=== PATIENT | male | born 1955 | race Caucasian/White ===

== ENCOUNTER → 2017-01-11 | Day surgery (SDC) | payer BC ==
[~2017-01-11] MED LIST: Lactated Ringers 1,000 ML IV SCH; Midazolam 1 MG/ML 2 ML SDV IV ONE; Propofol 200 MG/20 ML SDV IV ONE
--- NOTE | 2017-01-11 09:25 | PCM.OPNOTE ---
- General Post-Op/Procedure Note Date of Surgery/Procedure: 01/11/17 Operative Procedure(s): c scope with bx Findings: ascending colon polyp x3, hepatic flexure polyp Pre Op Diagnosis: colon screening Post-Op Diagnosis: ascending colon polyp x3, hepatic flexure polyp Anesthesia Technique: MAC Primary Surgeon: Rober Hernandez Anesthesia Provider: Eloisa Gracia Pathology: ascending colon polyp x3, hepatic flexure polyp Complications: None Condition: Good Free Text/Narrative:: see dictation
[2017-01-11 10:00] VITALS: BP 123/92
--- NOTE | 2017-01-11 10:04 | OR ---
DATE OF OPERATION: 01/11/2017 SURGEON: Rober Hernandez MD PROCEDURE PERFORMED: Colonoscopy with hot loop snare biopsy. PREOPERATIVE DIAGNOSIS: Need for screening colonoscopy. POSTOPERATIVE DIAGNOSES: Sessile polyps x3 of the proximal ascending colon and hepatic flexure polyp. INDICATIONS FOR PROCEDURE: This is a 61-year-old white male, who presents for his initial screening colonoscopy. He was offered and accepted same. DESCRIPTION OF OPERATION: After an excellent IV sedation was administered, the digital rectal exam was performed. No marked abnormality was noted. Flexible colonoscope was inserted and advanced to the cecum without difficulty. The following findings were noted. Ascending colon, just distal to the cecum there were 3 polyps, all 3 were flat, sessile on either side of the folds, they were biopsied with the hot loop snare and retrieved. Post biopsy, it appears that they were completely biopsied. These were sent for permanent. Transverse colon, with hepatic flexure, a small pedunculated polyp biopsied with the hot loop snare and sent for permanent. Descending colon, unremarkable. Sigmoid colon, unremarkable. Rectum and anus, unremarkable. Colon was deflated as the scope was removed. The patient tolerated the procedure well and was taken to recovery room in good condition. /[id number] /MARIEL
== END | disposition home or self-care (01) ==
LOC: FB.SDS 06:54
PROVIDERS: ATTEND Surgery
DX: Z12.11 Encounter for screening for malignant neoplasm of colon (principal); D12.2 Benign neoplasm of ascending colon; D12.3 Benign neoplasm of transverse colon; I10 Essential (primary) hypertension; E66.9 Obesity, unspecified; Z79.899 Other long term (current) drug therapy; Z87.891 Personal history of nicotine dependence
CPT/HCPCS: 45385; 88305; J2250; J2704; J7120

== ENCOUNTER 2017-05-03 08:19 | Day surgery (SDC) | payer BC ==
[2017-05-03] MEDS ORDERED: Lactated Ringers 1,000 ML IV SCH (08:45)
[2017-05-03] MEDS ORDERED: Lidocaine 2% 100 MG/5 ML Syringe IVPUSH ONE (09:30)
[2017-05-03] MEDS ORDERED: Propofol 200 MG/20 ML SDV IV ONE (09:30)
[2017-05-03] MEDS ORDERED: Midazolam 1 MG/ML 2 ML SDV IV ONE (09:30)
--- NOTE | 2017-05-03 10:10 | PCM.OPNOTE ---
- General Post-Op/Procedure Note Date of Surgery/Procedure: 05/03/17 Operative Procedure(s): cscope with bx Findings: ascending colon polyp descending colon polyp x3 Pre Op Diagnosis: hx of colon polyps with dysplasia Post-Op Diagnosis: ascending colon polyp. descending colon polyp x3 Anesthesia Technique: MAC Primary Surgeon: Rober Hernandez Anesthesia Provider: Yara Islas Pathology: ascending colon polyp descending colon polyp x3 Complications: None Condition: Good Free Text/Narrative:: see dictation
--- NOTE | 2017-05-03 10:20 | OR ---
DATE OF OPERATION: 05/03/2017 SURGEON: Rober Hernandez MD PROCEDURE PERFORMED: Most colonoscopy with cold forceps biopsy. PREOPERATIVE DIAGNOSIS: Personal history of colon polyps with dysplasia. POSTOPERATIVE DIAGNOSIS: Ascending colon polyp and descending colon polyp x3. INDICATIONS FOR PROCEDURE: This is a 62-year-old white male, who three months ago underwent a colonoscopy and had multiple polyps removed with dysplasia. Given the large number of polyps, I recommended a three-month followup. DESCRIPTION OF PROCEDURE: After an excellent IV sedation was administered, digital rectal exam was performed. No marked abnormality was noted. The flexible colonoscope was inserted and advanced to the cecum without difficulty. The following findings were noted. The prep was good. There were some areas that we had to irrigate, but otherwise we got a good exam. The ascending colon, a small polypoid lesion, biopsied with the biopsy forceps and sent for permanent. Transverse colon, unremarkable. Descending colon, and its base from roughly 60 to 50 cm, three small polypoid lesions biopsied and submitted in one container. Sigmoid unremarkable. Rectum and anus unremarkable. Colon was deflated as the scope was removed. The patient tolerated the procedure well and was taken to recovery in good condition. /[id number] /MODL
[2017-05-03 12:01] VITALS: BP 121/79
== END 2017-05-03 11:22 | disposition home or self-care (01) ==
LOC: FB.SDS 08:19
PROVIDERS: ATTEND Surgery
PROC: 0DBK8ZX Excision of Ascending Colon, Via Natural or Artificial Opening Endoscopic, Diagnostic (ICD-10-PCS; principal; 2017-05-03)
PROC: 0DBM8ZX Excision of Descending Colon, Via Natural or Artificial Opening Endoscopic, Diagnostic (ICD-10-PCS; 2017-05-03)
DX: Z09 Encounter for follow-up examination after completed treatment for conditions other than malignant neoplasm (principal); D12.2 Benign neoplasm of ascending colon; K63.5 Polyp of colon; I10 Essential (primary) hypertension
CPT/HCPCS: 45380; 88305; J2250; J2704; J7120